=== PATIENT | male | born 1990 | race Caucasian/White ===

== ENCOUNTER 2019-02-21 20:24 | Emergency (ER) | payer MEDICAID ==
[~2019-02-21] VITALS: Ht 182.9 cm; Wt 65.0 kg
[2019-02-21] MEDS ORDERED: normal saline 1000ml 1,000 ML IV ONE (20:45)
[2019-02-21] MEDS ORDERED: LORazepam 2 mg/ml vial IV ONE ×2 (20:45→21:10)
[2019-02-21 21:08] LABS: BASOPHILS % (AUTO) 0.4 % (0-1); EOSINOPHILS % (AUTO) 0 % (0-6); HEMATOCRIT 37.4 % (42.0-52.0); HEMOGLOBIN 12.6 g/dl (14.0-17.9); LYMPHOCYTES # (AUTO) 0.3 X10'3 (1.1-4.8); LYMPHOCYTES % (AUTO) 3.1 % (21-51); MEAN CORPUSCULAR HEMOGLOBIN 32.7 PG (27.0-31.0); MEAN CORPUSCULAR HGB CONC 33.6 g/dL (33.0-36.5); MEAN CORPUSCULAR VOLUME 97.5 FL (78-98); MEAN PLATELET VOLUME 8.2 FL (7.4-10.4); MONOCYTES # (AUTO) 0.4 X10'3 (0-0.9); MONOCYTES % (AUTO) 4.1 % (2-12); NEUTROPHILS # (AUTO) 8.5 X10'3 (1.8-7.7); NEUTROPHILS % (AUTO) 92.4 % (42-75); PLATELET COUNT 85 X10'3 (140-440); RED BLOOD COUNT 3.83 X10'6 (4.70-6.10); RED CELL DISTRIBUTION WIDTH 13.6 % (11.5-14.5); WHITE BLOOD COUNT 9.2 X10'3 (4.5-11.0)
[2019-02-21] MEDS ORDERED: ondansetron/PF 4mg/2ml inj IV ONE (21:10)
[2019-02-21 21:18] LABS: ALANINE AMINOTRANSFERASE 87 U/L (12-78); ALBUMIN 4.3 G/DL (3.4-5.0); ALBUMIN/GLOBULIN RATIO 0.8 (1.1-1.5); ALKALINE PHOSPHATASE 70 IU/L (46-116); ANION GAP 12 (8-16); ASPARTATE AMINO TRANSFERASE 116 U/L (10-37); BILIRUBIN,TOTAL 1.4 MG/DL (0.1-1.0); BLOOD UREA NITROGEN 9 MG/DL (7-18); BUN/CREATININE RATIO 10.5 (5.4-32.0); CALCIUM 9.7 MG/DL (8.5-10.1); CHLORIDE 95 MMOL/L (99-107); CREATINE KINASE 293 U/L (39-308); CREATININE 0.86 MG/DL (0.60-1.10); GLUCOSE 169 MG/DL (70-104); POTASSIUM 3.5 MMOL/L (3.5-5.1); SODIUM 134 MMOL/L (135-145); TOTAL CARBON DIOXIDE 27.5 MMOL/L (24-32); TOTAL PROTEIN 9.7 G/DL (6.4-8.2); eGFR > 90 ML/MIN
[2019-02-21 21:20] LABS: ETHANOL < 0.010 GM/DL (0.0-0.010)
--- NOTE | 2019-02-21 21:45 | NUR ---
LEFT FOREARM 20 GAUGE PIV STARTED, LABS DRAWN
--- NOTE | 2019-02-21 21:52 | NUR ---
PATIENT TO CT AT THIS TIME. RESPONDS TO VERBAL STIMULI, ABLE TO FOLLOW SIMPLE COMMANDS, NO SIGNS OF DISTRESS NOTED.
[2019-02-21 22:28] LABS: URINE AMPHETAMINE SCREEN NEGATIVE (Neg); URINE BARBITUATE SCREEN NEGATIVE (Neg); URINE BENZODIAZEPINES SCREEN NEGATIVE (Neg); URINE CANNABINOID SCREEN POSITIVE (Neg); URINE COCAINE SCREEN NEGATIVE (Neg); URINE METHADONE SCREEN NEGATIVE (Neg); URINE OPIATE SCREEN NEGATIVE (Neg); URINE PHENCYCLIDINE SCREEN NEGATIVE (Neg)
[2019-02-21 22:34] LABS: CLARITY,URINE CLEAR (Clear); GLUCOSE, URINE NEGATIVE (Neg); KETONES,URINE 15 mg/dl (Neg); LEUKOCYTE ESTERASE ,URINE NEGATIVE (Neg); NITRITES, URINE NEGATIVE (Neg); OCCULT BLOOD,URINE NEGATIVE (Neg); PROTEIN,URINE 100 mg/dl (Neg)
[2019-02-21 22:39] LABS: COLOR,URINE DARK YELLOW (Yellow); UA COLLECTION TYPE CLN CATCH MIDSTREAM
[2019-02-21 22:42] LABS: BACTERIA,URINE NONE SEEN /HPF (Neg); HYALINE CASTS 0-3 /LPF (NEGATIVE); MUCUS STRANDS FEW /LPF (Neg); RBC,URINE 0-2 /HPF (0-2); SQUAMOUS EPITHELIAL CELL,UR FEW /LPF (FEW); TRANSITIONAL EPI CELLS,URINE FEW /HPF; WBC,URINE NONE SEEN /HPF (0-4)
[2019-02-22 00:03] VITALS: BP 110/87
== END 2019-02-22 00:11 | disposition home or self-care (01) ==
LOC: ER 20:26 → EEVIPCON 20:26 → ER 02-22 00:11
DX: S06.0X9A Concussion with loss of consciousness of unspecified duration, initial encounter (principal); F10.129 Alcohol abuse with intoxication, unspecified; Y90.9 Presence of alcohol in blood, level not specified; Y08.89XA Assault by other specified means, initial encounter; Y93.89 Activity, other specified; Y92.89 Other specified places as the place of occurrence of the external cause; Y99.8 Other external cause status
CPT/HCPCS: 36415; 70450; 70486; 71045; 72125; 80053; 80305; 80320; 81001; 82550; 83605; 85025; 85610; 93005; 96361; 96374; 96375; 99284; J2060; J2405; J7030

== ENCOUNTER 2021-04-02 21:43 | Emergency (ER) | payer MEDICAID ==
[~2021-04-02] VITALS: Ht 175.3 cm; Wt 70.5 kg
[2021-04-02 22:55] VITALS: BP 114/74
== END 2021-04-02 23:41 | disposition home or self-care (01) ==
LOC: ER 21:44
DX: Z00.8 Encounter for other general examination (principal); R07.89 Other chest pain; F10.129 Alcohol abuse with intoxication, unspecified; R10.84 Generalized abdominal pain; F12.90 Cannabis use, unspecified, uncomplicated; Z72.89 Other problems related to lifestyle
CPT/HCPCS: 71045; 93005; 99283

== ENCOUNTER 2022-12-25 08:48 | Emergency (ER) | payer MEDICAID ==
[~2022-12-25] VITALS: Ht 185.4 cm; Wt 85.9 kg
[2022-12-25 09:10] VITALS: BP 112/75
[2022-12-25] MEDS ORDERED: TETanus/Pertussis (Acell)/Diphther VAC/PF (Tdap-Adult) 0.5ml syringe IMVAC ONE (09:15)
== END 2022-12-25 10:18 ==
LOC: ER 08:49
DX: S01.511A Laceration without foreign body of lip, initial encounter (principal); F12.10 Cannabis abuse, uncomplicated; V49.3XXA Car occupant (driver) (passenger) injured in unspecified nontraffic accident, initial encounter; Y93.89 Activity, other specified; Y92.89 Other specified places as the place of occurrence of the external cause; Y99.8 Other external cause status
CPT/HCPCS: 90471; 90715; 99283

== ENCOUNTER 2024-04-25 17:20 | Emergency (ER) | payer MEDICAID ==
[~2024-04-25] VITALS: Ht 185.4 cm; Wt 81.8 kg
[2024-04-25 17:24] VITALS: BP 125/84; PULSE 86; TEMP 98; O2SAT 98
[2024-04-25] MEDS ORDERED: CEPH-585 PO (18:51)
[2024-04-25] MEDS: cephalexin 500mg capsule PO ONE (19:41)
[2024-04-25] MEDS: HYDROcodone/acetaminophen 10/325mg tab PO ONE (19:41)
[2024-04-25 19:44] VITALS: RESP 16
[2024-04-25] MEDS: ketorolac trometh 15mg/ml vial 15 MG/ML ML IM ONE (19:44)
== END 2024-04-25 19:55 | disposition home or self-care (01) ==
LOC: ER 17:21
DX: K00.6 Disturbances in tooth eruption (principal); K08.89 Other specified disorders of teeth and supporting structures; F12.90 Cannabis use, unspecified, uncomplicated; Z79.2 Long term (current) use of antibiotics
CPT/HCPCS: 96372; 99283; J1885